=== PATIENT | female | born 1995 | race Caucasian/White ===

== ENCOUNTER 2016-09-01 12:00 | Emergency (ER) | payer OTHER ==
[~2016-09-01] VITALS: Ht 154.9 cm; Wt 51.5 kg
[~2016-09-01 12:00] MED LIST: IBUP-103 PO; NUTRTAB PO
[2016-09-01 12:06] VITALS: TEMP 36.6; Ht 154.9 cm; Wt 51.5 kg
[2016-09-01] MEDS ORDERED: IBUPROFEN 200 MG TAB PO STA (12:27)
--- NOTE | 2016-09-01 13:12 | DIAGNOSTIC IMAGING REPORT ---
RIGHT RIBS UNILATERAL WITH PA CHEST CLINICAL HISTORY: right anterior rib pain/injury Right COMPARISON STUDY: None FINDINGS: Negative right ribs. No evidence for fracture. Lungs are clear. No evidence for pneumothorax. IMPRESSION: 1. Negative right ribs. 2. Negative chest. Electronically signed by: Ramon Godinez M.D. 09/01/2016 1:11 PM Dictated Date/Time: 09/01/2016 1:10 PM
--- NOTE | 2016-09-01 13:35 | EMERGENCY ROOM VISIT NOTE ---
ED Visit Note First contact with patient: 12:19 CHIEF COMPLAINT: Right rib injury HISTORY OF PRESENT ILLNESS: This 21-year-old female presents to the ER with chief complaint of right rib injury. The patient states that while she was in [place] last week on spring she fell backwards and a chair landed on top of her. She states it struck the anterior lower ribs. Since that time she has pain in the ribs especially when she moves or coughs. The patient has had head congestion and cough since last week. She does admit to some slight body aches but denies any fever, sore throat or ear pain. REVIEW OF SYSTEMS: 6 system review was performed and was negative unless stated otherwise in history of present illness. PMH: The patient is healthy; there is no significant medical or surgical history. SOCIAL HISTORY: Patient is a [employer] student. The patient admits to tobacco use and occasional alcohol use. PHYSICAL EXAM: Vital Signs were reviewed: Temperature 36.6, blood pressure 107/ 70, pulse 80 respirations 18 Reviewed Nurse's notes and agree. Oxygen saturation is 99 % on room air which is normal . GENERAL: 20-year-old male appears in no acute distress. MENTAL STATUS: Alert, oriented, coherent. EARS: Canals clear. TMs good light reflex, no erythema or fluid level noted. NOSE: Nasal mucosa with moderate erythema engorgement. PHARYNX: No erythema, no edema noted. No exudate noted. Airway is adequate. NECK: Supple, non-tender. No lymphadenopathy noted. LUNGS: Clear to auscultation without wheezes rales or rhonchi. CARDIAC: Regular rate and rhythm without murmur. CHEST WALL: No erythema, ecchymosis noted. There is tenderness palpation over the right anterior lower chest wall otherwise chest wall is nontender. SKIN: No rashes noted. EMERGENCY COURSE: The patient was evaluated. The patient was given Motrin 400 mg by mouth for pain. X-ray of the right ribs to include PA chest was ordered and interpreted by the radiologist and myself. DIAGNOSTICS:RIGHT RIBS UNILATERAL WITH PA CHEST CLINICAL HISTORY: right anterior rib pain/injury Right COMPARISON STUDY: None FINDINGS: Negative right ribs. No evidence for fracture. Lungs are clear. No evidence for pneumothorax. IMPRESSION: 1. Negative right ribs. 2. Negative chest. Electronically signed by: Ramon Godinez M.D. 09/01/2016 1:11 PM Dictated Date/Time: 09/01/2016 1:10 PM The status of this report is Signed. Draft = Not yet reviewed or approved by Radiologist. The patient was informed of the findings and discharged home in stable condition. DIAGNOSIS: Right rib contusion URI TREATMENT and DISCHARGE INSTRUCTIONS: Ibuprofen 400 mg every 6 hours with food for pain. [id number] symptomatic treatment for your cold symptoms. Push fluids, rest. If symptoms persist or worsen, follow-up with [facility]. Current/Historical Medications No Active Prescriptions or Reported Meds Allergies Coded Allergies: No Known Allergies (Unverified , 09/01/16) Vital Signs Date Time Temp Pulse Resp B/P Pulse Ox O2 Delivery O2 Flow Rate FiO2 09/01/16 12:06 36.6 80 18 107/70 99 Room Air Medications Administered Medications (Trade) Dose Ordered Sig/Naomi Route Start Time Stop Time Status Last Admin Dose Admin Ibuprofen (Advil Tab) 400 mg NOW STAT PO 09/01/16 12:27 09/01/16 12:28 DC 09/01/16 12:33 400 MG Departure Information Prescriptions No Active Prescriptions or Reported Meds Referrals No Doctor, Assigned (PCP) Patient Instructions My [facility] [employer]
[2016-09-01 13:43] VITALS: BP 101/67; PULSE 78; O2SAT 99
== END 2016-09-01 13:47 | disposition home or self-care (01) ==
LOC: C.EDB 12:03 → C.EDD 13:47
DX: S20.211A Contusion of right front wall of thorax, initial encounter (principal); J06.9 Acute upper respiratory infection, unspecified; W01.190A Fall on same level from slipping, tripping and stumbling with subsequent striking against furniture, initial encounter; F17.200 Nicotine dependence, unspecified, uncomplicated

== ENCOUNTER 2017-08-09 17:18 | Emergency (ER) | payer OTHER ==
[~2017-08-09] VITALS: Ht 152.4 cm; Wt 48.0 kg
[2017-08-09 17:33] VITALS: TEMP 36.6; Ht 152.4 cm; Wt 48.0 kg
[2017-08-09] MEDS ORDERED: IBUP-103 PO (19:50)
[2017-08-09] MEDS ORDERED: DEXAMETHASONE **PF** INJ 10 MG/ML VIAL IM STA (20:00)
[2017-08-09] MEDS ORDERED: CYCLOBENZAPRINE HCL 5 MG TAB PO STA (20:00)
--- NOTE | 2017-08-09 21:05 | DIAGNOSTIC IMAGING REPORT ---
L-SPINE MIN 4 VIEWS ROUTINE, SACRUM COCCYX MIN 2 VIEWS CLINICAL HISTORY: low back pain COMPARISON STUDY: Abdomen and pelvis CT 12/23/2015. FINDINGS: Stable 3 mm stone within the lower pole of the right kidney. No fracture or subluxation within the lumbar spine. Disc spaces are relatively preserved. No fractures identified within the sacrum or coccyx. Bilateral sacroiliac joints are within normal limits. Presacral soft tissues are maintained. Small calcification within the right deep pelvis consistent with a phlebolith. IMPRESSION: 1. No fracture or subluxation within the lumbar spine. 2. The sacrum and coccyx are within normal limits. 3. Stable right-sided nephrolithiasis. Electronically signed by: Juan Diego Flores M.D. 08/09/2017 9:04 PM Dictated Date/Time: 08/09/2017 9:00 PM
[2017-08-09] MEDS ORDERED: CYCL5TAB PO (21:36)
[2017-08-09] MEDS ORDERED: METH4PAK PO (21:36)
--- NOTE | 2017-08-09 21:38 | EMERGENCY ROOM VISIT NOTE ---
ED Visit Note First contact with patient: 19:47 CHIEF COMPLAINT: Low back pain HISTORY OF PRESENT ILLNESS: This 22-year-old female patient presents to the emergency department, ambulatory, complaining of pain in the low back which began a few days ago, but worsened today. The pain was gradual in onset, is now constant and worse with movement. The patient notes the pain as sharp and shooting and a 10/10 at its worst. The patient has taken 400 mg ibuprofen without relief of the pain. The patient denies any loss of control of their bowel or bladder functions. There has been no leg numbness or weakness, and no change in sensation. No nausea or vomiting or abdominal pain. No chest pain or shortness of breath. The patient has not had prior back injuries, but states she does occasionally get similar pain to this, usually with certain exercises. No dysuria or increased urinary frequency. The patient's symptoms are better now than they were earlier today. REVIEW OF SYSTEMS: A 10 system review of systems was performed with positives and pertinent negatives listed in the history of present illness. All other systems were reviewed and are negative. ALLERGIES: None MEDICATIONS: None PMH: None SOCIAL HISTORY: The patient is a [employer] student. She lives locally with her roommates. She denies drug use. She admits to occasional alcohol and daily tobacco use. PHYSICAL EXAM: VITALS: Vitals are noted on the nurse's note and reviewed by myself. Vital signs stable. GENERAL: This is a 22-year-old female, in no acute distress, nondiaphoretic, well-developed well-nourished. SKIN: The skin was without rashes, erythema, edema, or bruising. Capillary refill less than 2 seconds. NECK: Supple without nuchal rigidity. No cervical spine tenderness. No paraspinous muscle tenderness. HEART: Regular rate and rhythm without murmurs gallops or rubs. LUNGS: Clear to auscultation bilaterally without wheezes, rales or rhonchi. ABDOMEN: Positive bowel sounds x 4. Normal tympanic percussion. Soft, nontender, without masses or organomegaly. Denny sign negative. MUSCULOSKELETAL: No muscle atrophy, erythema, or edema noted of the back. There is no tenderness over the lumbar spinous processes. There is mild tenderness over the paraspinous muscles bilaterally. There is no tenderness over the thoracic spine or paraspinous muscles. There are muscle spasms present. The patient is slow to move around with maximum tenderness with sitting from a lying position. Positive straight leg raise test on the right. There is tenderness at the SI joint. NEURO: Patient was alert and oriented to person place and time. Normal sensation to light and sharp touch. Deep tendon reflexes 2+ in the lower extremities. Dorsalis pedis pulse 2+ bilaterally. Strength 5/5 and equal in the bilateral lower extremities. RADIOLOGY: L-SPINE MIN 4 VIEWS ROUTINE, SACRUM COCCYX MIN 2 VIEWS CLINICAL HISTORY: low back pain COMPARISON STUDY: Abdomen and pelvis CT 12/23/2015. FINDINGS: Stable 3 mm stone within the lower pole of the right kidney. No fracture or subluxation within the lumbar spine. Disc spaces are relatively preserved. No fractures identified within the sacrum or coccyx. Bilateral sacroiliac joints are within normal limits. Presacral soft tissues are maintained. Small calcification within the right deep pelvis consistent with a phlebolith. IMPRESSION: 1. No fracture or subluxation within the lumbar spine. 2. The sacrum and coccyx are within normal limits. 3. Stable right-sided nephrolithiasis. Electronically signed by: Juan Diego Flores M.D. 08/09/2017 9:04 PM Dictated Date/Time: 08/09/2017 9:00 PM EMERGENCY DEPARTMENT COURSE: The patient was seen and evaluated as above. She has symptoms consistent with lumbar strain with sciatica, and certainly does not exhibit any signs of infection, abscess, or cauda equina syndrome. She was given 8 mg Decadron and 5 mg Flexeril with moderate improvement in her symptoms. X-rays were ordered and reviewed by myself and radiologist as above. The patient was reassessed and notes significant improvement. She is able to ambulate more easily now than previously. The patient will be discharged home on steroids and muscle relaxers to help with her symptoms, and is agreeable to this assessment and plan. She was encouraged to follow-up outpatient with [facility] for possible physical therapy referral. The patient' s questions were answered to her satisfaction. Discharge instructions reviewed , and the patient was discharged home in good condition. I attest that I have personally reviewed the patient's current medication list. Patient was found to have normal blood pressure on screening and does not require follow-up. Etiologies such as lumbago, sciatica, cauda equina, epidural abscess, osteomyelitis, fracture, aortic disease, metastatic disease, infection, renal colic, gastrointestinal, as well as others were entertained. DIAGNOSIS: Lumbar strain, sciatica Current/Historical Medications Scheduled Methylprednisolone (Medrol Dosepak), 0 PO DAILY Scheduled PRN Cyclobenzaprine Hcl (Flexeril), 5 MG PO TID PRN for Muscle Spasms Ibuprofen Tab (Advil), 400 MG PO Q6 PRN for Pain Allergies Coded Allergies: No Known Allergies (Unverified , 09/01/16) Vital Signs Date Time Temp Pulse Resp B/P (MAP) Pulse Ox O2 Delivery O2 Flow Rate FiO2 08/09/17 21:48 82 18 110/64 100 08/09/17 19:52 84 18 107/68 100 Room Air 08/09/17 17:33 36.6 82 18 97/61 96 Room Air Medications Administered Medications (Trade) Dose Ordered Sig/Naomi Route Start Time Stop Time Status Last Admin Dose Admin Dexamethasone Sodium Phosphate (Dexamethasone Inj Pf) 8 mg NOW STAT IM 08/09/17 20:00 08/09/17 20:02 DC 08/09/17 20:08 8 MG Cyclobenzaprine HCl (Flexeril Tab) 5 mg NOW STAT PO 08/09/17 20:00 08/09/17 20:02 DC 08/09/17 20:08 5 MG Departure Information Impression Primary Impression: Strain of lumbar region Additional Impression: Sciatica Dispostion Home / Self-Care Condition GOOD Prescriptions Cyclobenzaprine Hcl (FLEXERIL) 5 Mg Tab 5 MG PO TID Y for Muscle Spasms, #15 TAB PRN Prov: Valencia Kidd PA-C 08/09/17 Methylprednisolone (MEDROL DOSEPAK) 4 Mg Arian 0 PO DAILY, #1 PKT Prov: Valencia Kidd PA-C 08/09/17 Referrals [facility] (PCP) Patient Instructions ED Low Back Pain Injury, Exercises Back Lower Back Stretch, My [facility] Additional Instructions You have been treated in the Emergency Department for Back Pain. You have received pain medicine in the emergency department which impairs your ability to operate a vehicle. You have been prescribed Flexeril (cyclobenzaprine) 1-2 tabs orally, three times per day. Do NOT exceed 30 mg (6 tabs) per day. Take your first dose at bedtime as it can make you drowsy. Always take all medications as prescribed. You have been prescribed a Medrol Dosepak. This is a steroid which will help decrease your inflammation, redness, and itch. Take the medicine as prescribed. Take the ENTIRE 6 day course of the steroids. Do not take any NSAIDs including ibuprofen, naproxen, Motrin, Aleve, Advil while taking this medication. You may take Tylenol (acetaminophen). For pain control, you can use the following [id number] medicines (if >12 yo): Ibuprofen(Motrin, Advil) may be used for fever or pain. Use 600mg every six hours as needed. Take with food. Avoid using more than 2400mg in a 24 hour period. Do not use 2400mg per day for more than three consecutive days without physician direction. Prolonged inappropriate use can lead to stomach upset or ulcers. Do not take this medication while taking steroids. (AND/OR) Acetaminophen(Tylenol) may be used for fever or pain. Use 1000mg every six hours as needed. Avoid using more than 3000mg in a 24 hour period. If this is an acute injury, ice can be applied to the area of pain for the first 3 days to help decrease pain and inflammation. After the first 3 days, a heating pad can be used over the area for continued soothing relief. You should schedule a follow-up appointment in 2-3 days with your Primary Care Provider/[facility] for further evaluation and treatment of your back pain. Return to the Emergency Department if your current symptoms worsen despite treatment course outlined above, or if you develop any of the following symptoms : intractable pain despite aforementioned treatment course, loss of control of your bowel or bladder, numbness or tingling in your groin, or development of a fever. School Instructions Return To School: 2 days Problem Qualifiers Primary Impression: Strain of lumbar region Encounter type: initial encounter Qualified Codes: S39.012A - Strain of muscle, fascia and tendon of lower back, initial encounter Additional Impression: Sciatica Laterality: bilateral Qualified Codes: M54.31 - Sciatica, right side; M54.32 - Sciatica, left side
[2017-08-09 21:48] VITALS: BP 110/64; PULSE 82; O2SAT 100
== END 2017-08-09 21:52 | disposition home or self-care (01) ==
LOC: C.EDB 17:20 → C.EDD 21:52
DX: S39.012A Strain of muscle, fascia and tendon of lower back, initial encounter (principal); M54.32 Sciatica, left side; M54.31 Sciatica, right side; X58.XXXA Exposure to other specified factors, initial encounter; Y92.9 Unspecified place or not applicable; Z72.0 Tobacco use

== ENCOUNTER 2017-10-02 15:53 | Emergency (ER) | payer OTHER ==
[~2017-10-02] VITALS: Ht 152.4 cm; Wt 48.2 kg
[~2017-10-02 15:53] MED LIST changes: -NUTRTAB PO
[2017-10-02 15:58] VITALS: BP 100/60; PULSE 70; TEMP 36.8; O2SAT 97; Ht 152.4 cm; Wt 48.2 kg
[2017-10-02] MEDS ORDERED: TRAMADOL HCL 50 MG TAB PO STA (16:34)
[2017-10-02] MEDS ORDERED: KETOROLAC TROMETHAMINE 60 MG/2 ML VIAL IM STA (16:34)
[2017-10-02] MEDS ORDERED: DEXAMETHASONE **PF** INJ 10 MG/ML VIAL IM ONE (16:45)
[2017-10-02] MEDS ORDERED: TRAM-10 PO (16:54)
[2017-10-02] MEDS ORDERED: METH4PAK PO (16:54)
--- NOTE | 2017-10-02 19:11 | EMERGENCY ROOM VISIT NOTE ---
History First contact with patient: 16:02 Chief Complaint: BACK PAIN Stated Complaint: SCIATICA History of Present Illness The patient is a 22 year old female who presents to the Emergency Room with complaints of worsening back pain radiating down the right posterior thigh and leg region. The patient reports that the pain alternates between her buttock and leg region. The patient reports that she was here in July with similar symptoms. She was provided some shots and prescription for a muscle relaxer and steroid. The patient reports that she then followed up with a physical therapist at [facility]. The patient reports that she only had 3 sessions. She also saw a chiropractor for a few sessions as well. When asked if the patient actually saw a provider at [facility], she does not think that she did. The patient reports that she is going back home to [facility] in 2 weeks when the semester is over. With her current symptoms, the patient denies any bladder/bowel incontinence, saddle anesthesias or lower extremity weakness. She is finding it difficult to study for finals as she has to lay mostly on her stomach to relieve the pain. She rates her discomfort a 10 out of 10. Review of Systems 10 system review was performed and was negative except for pertinent positives and negatives as indicated in history of present illness Past Medical/Surgical History Medical Problems: (1) Immunizations up to date Family History Patient reports no known family medical history. Social History Smoking Status: Current Every Day Smoker Drug Use: none Marital Status: single Occupation Status: [employer] Current/Historical Medications Scheduled Methylprednisolone (Medrol Dosepak), 0 PO DAILY Scheduled PRN Ibuprofen Tab (Advil), 400 MG PO Q6 PRN for Pain Tramadol (Ultram), 1-2 TAB PO Q4H PRN for Pain Physical Exam Vital Signs Date Time Temp Pulse Resp B/P (MAP) Pulse Ox O2 Delivery O2 Flow Rate FiO2 10/02/17 15:58 36.8 70 18 100/60 97 Room Air Physical Exam CONSTITUTIONAL: Healthy and well nourished. Alert and oriented X 3 with positive affect. Patient does not appear in any acute distress. The patient was laying in the supine position during exam. HEENT: Normocephalic, atraumatic. Pupils equal, round and reactive. NECK: Full active range of motion without discomfort. RESPIRATORY: Clear to auscultation bilaterally with no wheezing, crackles, rhonchi or stridor. CARDIOVASCULAR: Regular rate and rhythm with no murmurs, rubs or gallops. GASTROINTESTINAL: Bowel sounds present in all quadrants. Soft and nontender to palpation. MUSCULOSKELETAL: Examination shows generalized tenderness to palpation through the right lower lumbar region and SI joint. Negative logroll. Mildly positive straight leg raise. Ankle plantar and dorsiflexion strength are 5 out of 5 and symmetric bilaterally. Pedal pulses are intact. INTEGUMENTARY: No rash or other significant dermatologic conditions noted. NEUROLOGIC: Lower extremities are sensory intact with deep tendon reflexes 2+ and symmetric bilaterally. Medical Decision & Procedures Medications Administered Medications (Trade) Dose Ordered Sig/Naomi Route Start Time Stop Time Status Last Admin Dose Admin Ketorolac Tromethamine (Toradol Inj) 60 mg NOW STAT IM 10/02/17 16:34 10/02/17 16:36 DC 10/02/17 17:09 60 MG Dexamethasone Sodium Phosphate (Dexamethasone Inj Pf) 10 mg NOW ONCE IM 10/02/17 16:45 10/02/17 16:46 DC 10/02/17 17:09 10 MG Tramadol HCl (Ultram Tab) 50 mg NOW STAT PO 10/02/17 16:34 10/02/17 16:36 DC 10/02/17 17:08 50 MG ED Course Patient history and physical exam were performed. Nurse's notes were reviewed. Vital signs were reviewed and were normal. I also reviewed documentation from the patient's visit on 08/09/17. She did have x-rays performed that were normal. She was provided prescriptions for Flexeril and a Medrol Dosepak, and was referred back to her PCP or [facility] for follow-up. The patient appears to have a worsening radiculitis at this time. I did suggest starting her again on a corticosteroid, and providing a prescription for Ultram. The patient was advised that she could alternate ibuprofen and Tylenol for additional baseline pain relief. The patient was encouraged to either follow-up with [facility] officially, or she was also provided contact information for [facility]. She was provided contact information for Dr. Wallace, spine surgeon, although I doubt that she would have any definitive evaluation and treatment plan established within the next 2 weeks. The patient has essentially met criteria for most insurance companies to authorize an MRI, however I explained to the patient that the emergency department does not do prior authorization for MRI studies. The patient was advised that if she does not have an MRI performed prior to going home, she may discuss this with her PCP back in [facility]. The patient was administered Toradol 60 mg and Decadron 10 mg IM. The patient was happy with plan of care, voiced understanding of all discharge instructions, was appreciative of the education that I provided over an approximate 30 minutes evaluation, and rated her discomfort a 6 out of 10 at the conclusion of my exam. Medical Decision See previous section. Patient history and clinical exam findings are not consistent with cauda equina syndrome. I do not suspect spinal abscess, hematoma or discitis. Her symptoms are consistent with a lumbar radiculitis. [place] Drug Monitoring Program Search Results: patient reviewed within database, no issues identified Medication Reconcilliation Current Medication List: was personally reviewed by me Blood Pressure Screening Patient's blood pressure: Normal blood pressure Impression Primary Impression: Right lumbar radiculitis Departure Information Dispostion Home / Self-Care Condition FAIR Prescriptions Methylprednisolone (MEDROL DOSEPAK) 4 Mg Arian 0 PO DAILY, #1 PKT Prov: Junior Brock PA 10/02/17 Tramadol (Ultram) 50 Mg Tab 1-2 TAB PO Q4H Y for Pain, #30 TAB For Initial Treatment Prov: Junior Brock PA 10/02/17 Referrals Omar Wallace D.O. Wagner,Fabiola NormanP. Forms HOME CARE DOCUMENTATION FORM, IMPORTANT VISIT INFORMATION Patient Instructions Lumbar Radiculopathy, My [facility] Additional Instructions Try to avoid sitting for long periods of time. Avoid heavy lifting or other strenuous activities. Ibuprofen 800 mg and/or Tylenol 1000 mg every 8 hours. You may also alternate these medications for more effective pain relief: Ibuprofen --4 HRS--> Tylenol --4 HRS--> ibuprofen --4 HRS--> Tylenol .... Ultram if needed for worse pain. Take Medrol Dosepak as prescribed, next dose tomorrow evening. Suggest follow-up with [facility] or [facility] (PRESTON Collins) for further reevaluation and management. You may also try to contact the [facility] (Dr. Wallace ) to see if they can evaluate you before you return home. Return to the emergency department for any developing bladder/bowel incontinence , numbness of the inner thigh/pubic region or profound right lower extremity weakness.
== END 2017-10-02 17:15 | disposition home or self-care (01) ==
LOC: C.EDB 15:54 → C.EDD 17:15
DX: F17.200 Nicotine dependence, unspecified, uncomplicated (principal); M54.16 Radiculopathy, lumbar region

== ENCOUNTER 2017-10-08 17:48 | Emergency (ER) | payer OTHER ==
[~2017-10-08] VITALS: Ht 157.5 cm; Wt 47.7 kg
[~2017-10-08 17:48] MED LIST changes: -IBUP-103 PO; +METH4PAK PO; +TRAM-10 PO
[2017-10-08 17:57] VITALS: TEMP 36.5; Ht 157.5 cm; Wt 47.7 kg
--- NOTE | 2017-10-08 20:14 | DIAGNOSTIC IMAGING REPORT ---
LUMBAR SPINE W/O CONTRAST HISTORY: Pain low back pain, radicular sxs right leg, numbness TECHNIQUE: Multiplanar multisequence MRI of the lumbar spine was performed without the use of contrast. COMPARISON: None. FINDINGS: For the purpose of the report the L5-S1 disc space will be located on axial image 2431. Normal signal characteristics of the vertebral bodies. Moderate degenerative disc change L5-S1 with mild disc desiccation L4-L5. Posterior disc herniation L5-S1 with a posterior extruded disc. Bulging disc component L4-L5 L1-L2: No significant central canal or neural foraminal narrowing. L2-L3: No significant central canal or neural foraminal narrowing. L3-L4: No significant central canal or neural foraminal narrowing. L4-L5: Central bulging disc creating a mild impact upon the anterior thecal sac. Neuroforamina are patent bilaterally. L5-S1: Right posterior disc herniation with extruded disc fragment extending posterior to the S1 segment. The extruded disc fragment has a maximum cephalocaudal dimension of 1.5 cm with transaxial measurements of 10 x 8 mm. Local impact 1 thecal sac and associated nerve roots is present. There is minimal narrowing of the right neuroforamina. Left neural foramina is patent. Bulk of the impact his upon the thecal sac itself. IMPRESSION: 1. Prominent right posterior disc herniation L5-S1. 2. This is associated with an extruded disc extending posterior to the right central aspect of the S1 segment. Dimensions of the extruded disc fragment are 1.5 cm x 10 x 8 mm in cross-section 3. Localized mass effect as described with considerable deformity/displacement of the thecal sac posterior to the S1 segment. 4. Central bulging disc L4-L5. The above report was generated using voice recognition software. It may contain grammatical, syntax or spelling errors. Electronically signed by: Ramon Godinez M.D. 10/08/2017 8:13 PM Dictated Date/Time: 10/08/2017 8:06 PM
--- NOTE | 2017-10-08 20:31 | EMERGENCY ROOM VISIT NOTE ---
History First contact with patient: 18:04 Chief Complaint: OTHER COMPLAINT Stated Complaint: SIACTICA History of Present Illness The patient is a 22 year old female who presents to the Emergency Room with complaints of persistent low back pain. The patient reports that she has had pain in her low back for the past 2 months. She states the pain radiates into her right buttock and right thigh. She has relief laying down on her side and states the pain is worse when she is up walking around or sitting. She rates her current discomfort a 10/10. She states the pain as a dull pain and she has associated numbness at times in her right leg and buttocks. This numbness is intermittent. The pain sometimes radiates all the way down the leg into the right foot. She states that she has tingling and feelings of pins and needles at times. She has had courses of steroids and injections for the pain. She has seen [facility] and did physical therapy but states that she did not like physical therapy, because they did not perform any tests and did not put her on a set schedule. She has been to the chiropractor twice and has had massages without relief of her pain. She was seen by orthopedic spine and they are working to have an MRI authorized. The patient states that she finished her steroid pack today and does not want to wait any longer for an MRI. She denies any bowel/bladder incontinence, urinary symptoms, fevers or weakness. Review of Systems A complete 10 point review of systems was reviewed with the patient with pertinent positives and negatives as per history of present illness. All else were negative. Past Medical/Surgical History Medical Problems: (1) Immunizations up to date Family History Patient reports no known family medical history. Social History Smoking Status: Current Some Day Smoker Drug Use: none Marital Status: single Occupation Status: [employer] student Current/Historical Medications Scheduled Methylprednisolone (Medrol Dosepak), 0 PO DAILY Scheduled PRN Acetaminophen (Tylenol), 1,000 MG PO Q6H PRN for Pain Ibuprofen Tab (Advil), 400 MG PO Q6H PRN for Pain Tramadol (Ultram), 1-2 TAB PO Q4H PRN for Pain Physical Exam Vital Signs Date Time Temp Pulse Resp B/P (MAP) Pulse Ox O2 Delivery O2 Flow Rate FiO2 10/08/17 20:56 57 18 95/54 98 10/08/17 17:57 36.5 86 18 102/69 97 Room Air Physical Exam VITALS: Vitals are noted on the nurse's note and reviewed by myself. Vital signs stable. GENERAL: This is a 22-year-old female, in no apparent distress, well-developed well-nourished. SKIN: The skin was without rashes. HEAD: Normocephalic atraumatic. HEART: Regular rate and rhythm without murmurs gallops or rubs. LUNGS: Clear to auscultation bilaterally without wheezes, rales or rhonchi. ABDOMEN: Positive bowel sounds x 4. Soft, nontender to palpation. MUSCULOSKELETAL: No significant tenderness to palpation in the lumbar spine or paraspinous muscles. Full range of motion and strength 5/5 in bilateral lower extremities. NEURO: Patient was alert and oriented to person place and time. Sensation intact over bilateral lower extremities. Patellar reflexes 2+ bilaterally. Medical Decision & Procedures ER Provider Diagnostic Interpretation: LUMBAR SPINE W/O CONTRAST HISTORY: Pain low back pain, radicular sxs right leg, numbness TECHNIQUE: Multiplanar multisequence MRI of the lumbar spine was performed without the use of contrast. COMPARISON: None. FINDINGS: For the purpose of the report the L5-S1 disc space will be located on axial image 2431. Normal signal characteristics of the vertebral bodies. Moderate degenerative disc change L5-S1 with mild disc desiccation L4-L5. Posterior disc herniation L5-S1 with a posterior extruded disc. Bulging disc component L4-L5 L1-L2: No significant central canal or neural foraminal narrowing. L2-L3: No significant central canal or neural foraminal narrowing. L3-L4: No significant central canal or neural foraminal narrowing. L4-L5: Central bulging disc creating a mild impact upon the anterior thecal sac. Neuroforamina are patent bilaterally. L5-S1: Right posterior disc herniation with extruded disc fragment extending posterior to the S1 segment. The extruded disc fragment has a maximum cephalocaudal dimension of 1.5 cm with transaxial measurements of 10 x 8 mm. Local impact 1 thecal sac and associated nerve roots is present. There is minimal narrowing of the right neuroforamina. Left neural foramina is patent. Bulk of the impact his upon the thecal sac itself. IMPRESSION: 1. Prominent right posterior disc herniation L5-S1. 2. This is associated with an extruded disc extending posterior to the right central aspect of the S1 segment. Dimensions of the extruded disc fragment are 1.5 cm x 10 x 8 mm in cross-section 3. Localized mass effect as described with considerable deformity/displacement of the thecal sac posterior to the S1 segment. 4. Central bulging disc L4-L5. Electronically signed by: Ramon Godinez M.D. Laboratory Results Test 10/08/17 18:25 Urine Color YELLOW Urine Appearance CLOUDY (CLEAR) Urine pH 7.0 (4.5-7.5) Urine Specific [place] 1.017 (1.000-1.030) Urine Protein NEG (NEG) Urine Glucose (UA) NEG (NEG) Urine Ketones NEG (NEG) Urine Occult Blood NEG (NEG) Urine Nitrite NEG (NEG) Urine Bilirubin NEG (NEG) Urine Urobilinogen NEG (NEG) Urine Leukocyte Esterase NEG (NEG) Urine WBC (Auto) 1-5 /hpf (0-5) Urine RBC (Auto) 0-4 /hpf (0-4) Urine Hyaline Casts (Auto) 1-5 /lpf (0-5) Urine Epithelial Cells (Auto) 20-30 /lpf (0-5) Urine Bacteria (Auto) NEG (NEG) Urine Test NEG (NEG) ED Course The patient was evaluated as above. Patient declined any pain medication. MRI was performed and read by radiology as above. I spoke with Dr. Wallace regarding the patient. He recommended follow up in the office within 48 hours. Patient was reevaluated and treatment plan was discussed. The patient was agreeable to the treatment plan. Discharge instructions were reviewed with the patient. The patient verbalized understanding of my assessment and treatment plan and was discharged home in good condition. Medical Decision Differential diagnosis includes cauda equina syndrome, cord compression, disc herniation, muscle spasm, lumbar strain, epidural abscess, malignancy, transverse myelitis, urinary tract infection, colitis, diverticulitis, kidney stone, among others. The patient is a 22-year-old female who presents today complaining of persistent low back pain. Patient has had multiple visits here and additionally has seen orthopedic spine and [facility] services for this issue. She has been on multiple rounds of steroids and has been taking tramadol for the pain. Patient complains of worsening numbness in her right groin which has been intermittent. Sensation is intact on exam today, however given worsening radicular symptoms MRI was ordered. This did show a large disc herniation as described above. Discussed the case with Dr. Wallace of orthopedic spine, who recommended follow-up in the office within 48 hours. The patient declined any further analgesics, and states that the tramadol works well for her. She was advised to call the office first thing in the morning. She will return for any worsening or new/concerning symptoms. She verbalized understanding of my assessment and treatment plan and was discharged home in good condition. [place] Drug Monitoring Program Search Results: patient reviewed within database, no issues identified Medication Reconcilliation Current Medication List: was personally reviewed by me Blood Pressure Screening Patient's blood pressure: Normal blood pressure Impression Primary Impression: Lumbar disc herniation with radiculopathy Departure Information Dispostion Home / Self-Care Condition GOOD Referrals No Doctor, Assigned (PCP) Jacky Mora M.D. Patient Instructions My [facility] Additional Instructions You have been treated in the Emergency Department for Back Pain. Continue your previous pain medications as prescribed. Contact Dr. Mora's office first thing in the morning to schedule follow-up appointment either Monday or Monday. You can tell them that you were in the emergency department and had an MRI, and that we spoke with Dr. Wallace who recommended to follow-up within 48 hours. Return to the Emergency Department if your current symptoms worsen despite treatment course outlined above, or if you develop any of the following symptoms : intractable pain despite aforementioned treatment course, loss of control of your bowel or bladder, numbness or tingling in your groin, or development of a fever.
[2017-10-08 20:56] VITALS: BP 95/54; PULSE 57; O2SAT 98
[2017-10-09] MEDS ORDERED: CITA10TA4 PO (15:49)
[2017-10-09] MEDS ORDERED: ULT50 PO (15:49)
[2017-10-09] MEDS ORDERED: ACET-1256 PO (16:21)
[2017-10-09] MEDS ORDERED: IBUP-103 PO (19:50)
[2017-10-11] MEDS ORDERED: RXC5 PO (11:23)
== END 2017-10-08 20:57 | disposition home or self-care (01) ==
LOC: C.EDB 17:49 → C.EDD 20:57
DX: M51.16 Intervertebral disc disorders with radiculopathy, lumbar region (principal); F17.200 Nicotine dependence, unspecified, uncomplicated

== ENCOUNTER 2017-10-09 14:32 | Inpatient (IN) | payer OTHER ==
[~2017-10-09] VITALS: Ht 152.4 cm; Wt 46.5 kg
[2017-10-09 14:36] VITALS: Ht 152.4 cm; Wt 46.5 kg
[2017-10-09] MEDS ORDERED: KETOROLAC TROMETHAMINE 30 MG/ML VIAL IV STA (14:52)
[2017-10-09] MEDS ORDERED: METHYLPREDNISOLONE 125 MG VIAL IV STA (14:52)
[2017-10-09] MEDS ORDERED: ONDANSETRON INJ 2 MG/ML 2 ML VIAL IV STA (14:52)
[2017-10-09] MEDS ORDERED: SODIUM CHLORIDE 0.9% 500ML 500 ML IV STA (14:52)
[2017-10-09 15:35] LABS: BASO % 0.2 %; BASO ABS # 0.02 K/uL (0-0.2); EOS % 0.8 %; EOS ABS # 0.08 K/uL (0-0.5); HEMATOCRIT 44.7 % (37-47); IG# 0.04 K/uL (0.00-0.02); LYMPH % 28.7 %; LYMPH ABS # 2.96 K/uL (1.2-3.4); MEAN CELL VOLUME 80.7 fL (80-100); MEAN CORPUSCULAR HEMOGLOBIN 27.1 pg (25-34); MEAN CORPUSCULAR HGB CONC 33.6 g/dl (32-36); MEAN PLATELET VOLUME 11.1 fL (7.4-10.4); MONO % 7.4 %; MONO ABS # 0.76 K/uL (0.11-0.59); NEUT % 62.5 %; NEUT ABS # 6.46 K/uL (1.4-6.5); PLATELET COUNT 225 K/uL (130-400); RED CELL DISTRIBUTION WIDTH SD 46.8 fL (36.4-46.3); WHITE BLOOD COUNT 10.32 K/uL (4.8-10.8)
[2017-10-09] MEDS ORDERED: ROCURONIUM BROMIDE 10 MG/ML 5 ML VIAL IV ONE (15:43)
[2017-10-09] MEDS ORDERED: PROPOFOL IV EMULSION 10 MG/ML 20 ML VIAL IV ONE ×2 (15:43→18:17)
[2017-10-09] MEDS ORDERED: GLYCOPYRROLATE INJ 0.2 MG/ML VIAL ONE ×2 (15:43→18:17)
[2017-10-09] MEDS ORDERED: ONDANSETRON INJ 2 MG/ML 2 ML VIAL ONE (15:43)
[2017-10-09] MEDS ORDERED: MIDAZOLAM HCL 1 MG/ML 2ML VIAL ONE (15:43)
[2017-10-09] MEDS ORDERED: FENTANYL CITRATE INJ 50 MCG/1 ML 2 ML VIAL ONE (15:43)
[2017-10-09] MEDS ORDERED: NEOSTIGMINE METHYLSULFATE 1 MG/ML 10ML VIAL ONE (15:43)
[2017-10-09] MEDS ORDERED: LIDOCAINE HCL 2% 2 ML VIAL (20MG/ML) ONE (15:43)
[2017-10-09] MEDS ORDERED: DEXAMETHASONE SOD INJ 4 MG/ML VIAL ONE (15:43)
--- NOTE | 2017-10-09 15:43 | EMERGENCY ROOM VISIT NOTE ---
History Report prepared by Dionicio: Edgar Galindo Under the Supervision of: Dr. Jan Rivero M.D. First contact with patient: 14:44 Chief Complaint: ABDOMINAL PAIN Stated Complaint: NUMBNESS TINGLING IN GROIN AREA, VOMITING History of Present Illness The patient is a 22 year old female who presents to the Emergency Room with complaints of worsening low back pain beginning two months ago. She rates her current pain at a 9/10 in severity. Her pain is worsened with movement. The patient also complains of numbness of her groin and states that she is unable to push out urine. She notes that she vomited three times today after she started taking Tramadol. She has a history of occasional lower back pain, but states that it normally resolves with exercise. The patient was seen in the ED two months ago for similar symptoms. She was noted to have a kidney stone at this time which was thought to be coincidental. She was referred to physical therapy at this time. The patient saw physical therapy three times, but stopped going because she felt "like they didn't have a real plan", and "like they thought it was recreation for me". She has seen a chiropractor multiple times within the past month. She saw orthopedics a few days ago and was told that they would work on scheduling an MRI. The patient was seen in the ED yesterday for worsening of her symptoms, and had an MRI of her lumbar spine. Her MRI showed a large lumbar disc herniation. The patient notes that she called orthopedics today and is scheduled to see them tomorrow. She finished a course of of steroids yesterday. She denies chance of . Source of History: patient Onset: Two months ago Position: back (lower) Symptom Intensity: 9/10 Timing: worsening Modifying Factors (Worsening): movement Associated Symptoms: + vomiting, + urinary symptoms (inability to push out urine), + numbness (groin) Review of Systems See HPI for pertinent positives & negatives. A total of 10 systems reviewed and were otherwise negative. Past Medical & Surgical Medical Problems: (1) Immunizations up to date Family History Patient reports no known family medical history. Social History Smoking Status: Never Smoker Drug Use: none Marital Status: single Occupation Status: [employer] student Current/Historical Medications Scheduled Citalopram Hydrobromide (Citalopram Hydrobromide), 15 MG PO DAILY Scheduled PRN Acetaminophen (Tylenol), 1,000 MG PO Q6H PRN for Pain Ibuprofen Tab (Advil), 400 MG PO Q6H PRN for Pain Tramadol HCl (Tramadol HCl), 50-100 MG PO Q4 PRN for Pain Allergies Coded Allergies: No Known Allergies (Unverified , 09/01/16) Physical Exam Vital Signs Date Time Temp Pulse Resp B/P (MAP) Pulse Ox O2 Delivery O2 Flow Rate FiO2 10/09/17 15:48 68 18 123/68 100 Room Air 10/09/17 14:36 36.3 89 20 112/75 97 Room Air Physical Exam GENERAL: Patient is in no acute distress. HEENT: No acute trauma, normocephalic atraumatic, mucous membranes dry, no nasal congestion, no scleral icterus. NECK: No stridor, no adenopathy, no meningismus, trachea is midline. LUNGS: Clear to auscultation bilaterally, no wheeze, no rhonchi, breath sounds equal. HEART: Without murmurs gallops or rubs, regular rate and rhythm. ABDOMEN: Soft, nontender, bowel sounds positive, no hernias, no peritonitis. EXTREMITIES: No cyanosis or edema, full range of motion of all the joints without pain or difficulty, no signs for acute trauma. NEUROLOGIC: Oriented x 3, no acute motor or sensory deficits, no focal weakness. 3/4 patellar and Achilles reflexes bilaterally. SKIN: No rash, no jaundice, no diaphoresis. Medical Decision & Procedures ER Provider Diagnostic Interpretation: Radiology results as stated below per my review and radiologist interpretation: LUMBAR SPINE W/O CONTRAST FINDINGS: For the purpose of the report the L5-S1 disc space will be located on axial image 2431. Normal signal characteristics of the vertebral bodies. Moderate degenerative disc change L5-S1 with mild disc desiccation L4-L5. Posterior disc herniation L5-S1 with a posterior extruded disc. Bulging disc component L4-L5 L1-L2: No significant central canal or neural foraminal narrowing. L2-L3: No significant central canal or neural foraminal narrowing. L3-L4: No significant central canal or neural foraminal narrowing. L4-L5: Central bulging disc creating a mild impact upon the anterior thecal sac. Neuroforamina are patent bilaterally. L5-S1: Right posterior disc herniation with extruded disc fragment extending posterior to the S1 segment. The extruded disc fragment has a maximum cephalocaudal dimension of 1.5 cm with transaxial measurements of 10 x 8 mm. Local impact 1 thecal sac and associated nerve roots is present. There is minimal narrowing of the right neuroforamina. Left neural foramina is patent. Bulk of the impact his upon the thecal sac itself. IMPRESSION: 1. Prominent right posterior disc herniation L5-S1. 2. This is associated with an extruded disc extending posterior to the right central aspect of the S1 segment. Dimensions of the extruded disc fragment are 1.5 cm x 10 x 8 mm in cross-section 3. Localized mass effect as described with considerable deformity/displacement of the thecal sac posterior to the S1 segment. 4. Central bulging disc L4-L5. The above report was generated using voice recognition software. It may contain grammatical, syntax or spelling errors. Electronically signed by: Ramon Godinez M.D. 10/08/2017 8:13 PM Laboratory Results 10/09/17 15:10 Red Blood Count 5.54, Mean Corpuscular Volume 80.7, Mean Corpuscular Hemoglobin 27.1, Mean Corpuscular Hemoglobin Concent 33.6, Mean Platelet Volume 11.1, Neutrophils (%) (Auto) 62.5, Lymphocytes (%) (Auto) 28.7, Monocytes (%) (Auto) 7.4, Eosinophils (%) (Auto) 0.8, Basophils (%) (Auto) 0.2, Neutrophils # (Auto) 6.46, Lymphocytes # (Auto) 2.96, Monocytes # (Auto) 0.76, Eosinophils # (Auto) 0.08, Basophils # (Auto) 0.02 10/09/17 15:10 Test 10/09/17 13:50 10/09/17 15:10 Urine Color YELLOW Urine Appearance CLEAR (CLEAR) Urine pH 7.5 (4.5-7.5) Urine Specific [place] 1.014 (1.000-1.030) Urine Protein NEG (NEG) Urine Glucose (UA) NEG (NEG) Urine Ketones NEG (NEG) Urine Occult Blood 1+ (NEG) Urine Nitrite NEG (NEG) Urine Bilirubin NEG (NEG) Urine Urobilinogen NEG (NEG) Urine Leukocyte Esterase TRACE (NEG) Urine WBC (Auto) 5-10 /hpf (0-5) Urine RBC (Auto) 10-30 /hpf (0-4) Urine Hyaline Casts (Auto) 5-10 /lpf (0-5) Urine Epithelial Cells (Auto) >30 /lpf (0-5) Urine Bacteria (Auto) NEG (NEG) Urine Renal Epithelial Cells /lpf (0-5) Urine Test NEG (NEG) White Blood Count 10.32 K/uL (4.8-10.8) Red Blood Count 5.54 M/uL (4.2-5.4) Hemoglobin 15.0 g/dL (12.0-16.0) Hematocrit 44.7 % (37-47) Mean Corpuscular Volume 80.7 fL (80-100) Mean Corpuscular Hemoglobin 27.1 pg (25-34) Mean Corpuscular Hemoglobin Concent 33.6 g/dl (32-36) Platelet Count 225 K/uL (130-400) Mean Platelet Volume 11.1 fL (7.4-10.4) Neutrophils (%) (Auto) 62.5 % Lymphocytes (%) (Auto) 28.7 % Monocytes (%) (Auto) 7.4 % Eosinophils (%) (Auto) 0.8 % Basophils (%) (Auto) 0.2 % Neutrophils # (Auto) 6.46 K/uL (1.4-6.5) Lymphocytes # (Auto) 2.96 K/uL (1.2-3.4) Monocytes # (Auto) 0.76 K/uL (0.11-0.59) Eosinophils # (Auto) 0.08 K/uL (0-0.5) Basophils # (Auto) 0.02 K/uL (0-0.2) RDW Standard Deviation 46.8 fL (36.4-46.3) RDW Coefficient of Variation 16.0 % (11.5-14.5) Immature Granulocyte % (Auto) 0.4 % Immature Granulocyte # (Auto) 0.04 K/uL (0.00-0.02) Anion Gap 4.0 mmol/L (3-11) Est Creatinine Clear Calc Drug Dose 74.6 ml/min Estimated GFR () 112.7 Estimated GFR (Non- 97.3 BUN/Creatinine Ratio 23.3 (10-20) Calcium Level 9.0 mg/dl (8.5-10.1) Human Chorionic Gonadotropin, Qual NEG (NEG) Laboratory results reviewed by me. Medications Administered Medications (Trade) Dose Ordered Sig/Naomi Route Start Time Stop Time Status Last Admin Dose Admin Methylprednisolone Sodium Succinate (Solu-Medrol IV) 60 mg NOW STAT IV 10/09/17 14:52 10/09/17 14:56 DC 10/09/17 15:13 60 MG Ondansetron HCl (Zofran Inj) 4 mg NOW STAT IV 10/09/17 14:52 10/09/17 14:56 DC 10/09/17 15:12 4 MG Ketorolac Tromethamine (Toradol Inj) 30 mg NOW STAT IV 10/09/17 14:52 10/09/17 14:56 DC 10/09/17 15:13 30 MG Sodium Chloride 500 ml @ 999 mls/hr Q31M STAT IV 10/09/17 14:52 10/09/17 15:22 DC 10/09/17 15:12 999 MLS/HR ED Course 1445: The patient was evaluated in room B2. A complete history and physical exam was performed. 1452: Ordered Sodium Chloride 500 ml @ 999 mls/hr IV, Toradol Inj 30 mg IV, Zofran Inj 4 mg IV, Solu-Medrol 60 mg IV. 1500: Upon reexamination the patient is resting. I discussed the treatment plan with the patient. She verbalizes agreement and understanding. I spoke with Dr. Wallace of Orthopedics. We discussed the patient's results and findings. The patient will be evaluated by Orthopedics for further management. Medical Decision The patient is a 22 year old female who presents to the ED with complaints of low back pain and groin numbness. Differential diagnoses considered include disc herniation, cauda equina syndrome, spinal stenosis, UTI, dehydration and electrolyte imbalance. There is no leukocytosis or concerning anemia. No significant electrolyte abnormality or kidney failure. Urinalysis shows contamination, no obvious infection. testing is negative. On exam, the patient did have good reflexes in both lower extremities. Imaging (an MRI) of her lumbar spine yesterday shows a large disc herniation with thecal sac compression. Patient received IV Toradol, IV Solu-Medrol and IV Zofran, she received IV saline. I do think a hospital stay is warranted. She is failing outpatient treatment. She has been to see multiple providers and imaging does show a very large disc herniation. I spoke with the spinal surgeon assembler clip on sunglasses, I spoke with case management. The patient is aware of her findings. Medication Reconcilliation Current Medication List: was personally reviewed by me Blood Pressure Screening Patient's blood pressure: Normal blood pressure Blood pressure disposition: Did not require urgent referral Consults Time Called: [id number] Consulting Physician: Dr. Wallace - Orthopedics Returned Call: [phone] Discussed the patient's case. Dr. Wallace will come see the patient in the ED. Impression Primary Impression: Lumbar disc herniation Additional Impressions: Bilateral leg numbness Failure of outpatient treatment Scribe Attestation The scribe's documentation has been prepared under my direction and personally reviewed by me in its entirety. I confirm that the note above accurately reflects all work, treatment, procedures, and medical decision making performed by me. Departure Information Dispostion Being Evaluated By Surgeon Referrals No Doctor, Assigned (PCP) Patient Instructions My [facility] Problem Qualifiers
[2017-10-09] MEDS ORDERED: ATROPINE SULFATE 0.1 MG/ML 5ML SYR IV PRN (15:45)
[2017-10-09] MEDS ORDERED: EpHEDrine SULFATE INJ 50 MG/ML AMP IV PRN (15:45)
[2017-10-09] MEDS ORDERED: MoRPHine SULFATE 10 MG/ML CARP/VIAL IV PRN (15:45)
[2017-10-09] MEDS ORDERED: ONDANSETRON INJ 2 MG/ML 2 ML VIAL IV PRN (15:45)
--- NOTE | 2017-10-09 15:45 | History and Physical ---
History & Physical Date Oct 09, 2017. Chief Complaint Back and leg pain with urinary retention and incontinence History of Present Illness The patient is a 22 year old female with complaints of worsening back pain leg pain and numbness. She has had these symptoms for several weeks. She does not describe any specific trauma fall or event. She describes numbness involving upper thighs and perineal area. She states this is been present for several days. She states she is able to urinate when she sits for several minutes on the toilet. She does not have spontaneous ability to urinate. Denies any loss of bowel control. She denies any gross weakness to touch to her lower extremities. Past Medical/Surgical History Medical Problems: (1) Immunizations up to date Additional History Hepatic Disease: No Endocrine Disorder: No Kidney Disease: No Hypertension: No Heart Disease: No Bleeding Tendencies: No Infectious Diseases: No Other: Depression Allergies Coded Allergies: No Known Allergies (Unverified , 09/01/16) Home Medications Scheduled Methylprednisolone (Medrol Dosepak), 0 PO DAILY Scheduled PRN Acetaminophen (Tylenol), 1,000 MG PO Q6H PRN for Pain Ibuprofen Tab (Advil), 400 MG PO Q6H PRN for Pain Tramadol (Ultram), 1-2 TAB PO Q4H PRN for Pain Physical Examination Skin: warm/dry, no rash Eyes: normal inspection, EOMI, sclerae normal ENT: normal ENT inspection, pharynx normal Head: normocephalic, atraumatic Neck: supple, no adenopathy, trachea midline Respiratory/Chest: lungs clear, normal breath sounds, no respiratory distress Cardiovascular: regular rate, rhythm, no edema, no murmur Abdomen / GI: normal bowel sounds, non tender Back: normal inspection Extremities: normal inspection, normal range of motion Neurologic/Psych: no motor/sensory deficits, alert, normal reflexes, oriented x 3 Addiitonal Comments: Patient is alert and oriented and cooperative. She has tension signs with straight leg raise on the right. She has reasonable plus 5 out of 5 strength to plantar flexion dorsiflexion quadriceps. Sensory is diminished testing on the right lateral aspect of her foot. She has numbness along the perineal and upper thigh area. She has no abnormal skin markings. Plan of Treatment Assessment herniated nuclear pulposus L5-S1 with caudal migration severe canal compromise and cauda equina syndrome. MRI performed yesterday is available for review. I appreciate massive disc herniation L5-S1 with caudal migration. It is nestled along the posterior aspect of the S1 vertebral body. It is creating severe canal compromise. Per the patient's history and exam I am concerned that this needs to be decompressed emergently. I would recommend wide decompression in light of the pattern of disc herniation and a complete discectomy and fusion. Risks benefits pros cons and alternatives were outlined in detail. Risks include but not limited to from anesthesia blindness stroke paralysis nerve damage blood loss current transfusion infection requiring reoperation. At this time we are moving forward with surgery I did have a discussion with her mother is currently in [facility] describing the diagnosis and our concerns. All questions were addressed.
[2017-10-09] MEDS ORDERED: CITA10TA4 PO (15:49)
[2017-10-09] MEDS ORDERED: ULT50 PO (15:49)
[2017-10-09 15:55] LABS: CREATININE 0.85 mg/dl (0.60-1.20); POTASSIUM 3.2 mmol/L (3.5-5.1)
[2017-10-09] MEDS ORDERED: BACITRACIN 50000 UNIT VIAL ONE (16:01)
[2017-10-09] MEDS ORDERED: BUPIVACAINE/EPINEPHRINE 0.5% MPF 1:200,000 30 ML VIAL ONE (16:01)
[2017-10-09] MEDS ORDERED: NURSING VERBAL MED ORDER ONE (16:16)
[2017-10-09] MEDS ORDERED: ACET-1256 PO (16:21)
[2017-10-09] MEDS ORDERED: HYDROmorphone INJ 2 MG/ML SYR/VIAL ONE (17:30)
[2017-10-09] MEDS ORDERED: FLOSEAL HEMOSTATIC MATRIX 10ML TOP ONE (18:26)
--- NOTE | 2017-10-09 18:32 | [facility] Operative Report ---
Operative Report Operative Date Oct 09, 2017. Pre-Operative Diagnosis herniated nuclear pulposus L5-S1 with caudal migration severe canal compromise and cauda equina syndrome. Post-Operative Diagnosis same Procedure(s) Performed 1. Lumbar decompression L5-S1. #2 posterior spinal fusion L5-S1. #3 placement posterior instrumentation L5-S1. #4 interbody fusion L5-S1. #5 placed a peek cage 11 x 22 mm at L5-S1. #6 placement of locally harvested morselized autograft in the posterior lateral gutters. #7 placement of ostial amp bone graft in the interbody space and posterior lateral gutters. Surgeon Dr Wallace Beta Tester Surgeon(s) none Estimated Blood Loss 260ml Findings Massive herniated free fragment of disc Specimens a. L5 S1 disc Anesthesia Type General Description of Procedure Patient was met with preoperatively case discussed all questions addressed. As her presentation was consistent with cauda equina syndrome I recommended emergent decompression. Patient understood and agreed to proceed. After informed consent obtained she was taken to the operative suite underwent intubation and placed in a prone position on the Calixto table on top of the See frame. All bony prominences were well-padded eyes inspected to ensure no external pressure placed upon the. This point the lumbar spine was prepped and draped in normal sterile fashion. Sharp dissection with the assistance of Bovie cautery was performed on November exposing the lamina and transverse process of L5 and sacral ala bilaterally. From a caudal cephalad fashion I removed the lamina of L5 as well as some of the superior portion of the S1 lamina. Identified a massive disc herniation with that extended caudally resting along the S1 vertebral body. He was removed in its entirety. I also addressed the disc herniation standing on the left lateral recess. Pedicle screws were placed in L5-S1 levels bilaterally with the assistance of fluoroscopy and a Propacet romaine placed through a transforaminal approach and left complete discectomy was performed endplates created to subcortical bleeding bone and an 11 x 22 mm peek cage filled with ostium bone graft tapped in position. The rods were then compressed locked into final position bilaterally. Ostium bone graft was placed in the posterior lateral gutters. Including local autograft. 15 round DUNG drain inserted. Incision was then closed with 1 Vicryl fascia 2-0 Vicryl subcutaneously and 4-0 Monocryl for fashion closure Steri-Strips sterile dressings placed. Patient will continue PACU stable condition. I attest to the content of the Intraoperative Record and any orders documented therein. Any exceptions are noted below.
[2017-10-09] MEDS ORDERED: SODIUM CHLORIDE 0.9% 1000ML 1,000 ML IV SCH (18:33)
--- NOTE | 2017-10-09 18:40 | DIAGNOSTIC IMAGING REPORT ---
LUMBAR SPINE 2 OR 3 VIEW CLINICAL HISTORY: L5-S1 FUSION TECHNIQUE: Image intensifier COMPARISON STUDY: None FINDINGS: 2 views the image intensifier confirmed the presence of an L5-S1 laminectomy and fusion. Metallic hardware is in good position. There is disc spacer present at L5-S1. IMPRESSION: Anatomic alignment post laminectomy and fusion L5-S1. The above report was generated using voice recognition software. It may contain grammatical, syntax or spelling errors. Electronically signed by: Ramon Godinez M.D. 10/09/2017 6:39 PM Dictated Date/Time: 10/09/2017 6:39 PM
[2017-10-09] MEDS ORDERED: ACETAMINOPHEN 500 MG TAB PO PRN (18:45)
[2017-10-09] MEDS ORDERED: LORAZEPAM 0.5 MG TAB PO PRN (18:45)
[2017-10-09] MEDS ORDERED: FAMOTIDINE 20 MG TAB PO PRN (18:45)
[2017-10-09] MEDS ORDERED: DO NOT ADMINISTER PNEUMOCOCCAL VACCINE PRN (18:45)
[2017-10-09] MEDS ORDERED: SOD PHOSPHATE/SOD BIPHOSPHATE ENEMA 132 ML BTL PR PRN (18:45)
[2017-10-09] MEDS ORDERED: hydrOXYzine HCL 25 MG TAB PO PRN (18:45)
[2017-10-09] MEDS ORDERED: DO NOT ADMINISTER FLU VACCINE PRN (18:45)
[2017-10-09] MEDS ORDERED: HYDROmorphone HCL 0.5MG/ML 50 ML CASSETTE IV PRN (18:45)
[2017-10-09] MEDS ORDERED: ACETAMINOPHEN IV 100 ML IV PRN (18:45)
[2017-10-09] MEDS ORDERED: NALOXONE HCL 0.4 MG/1 ML VIAL/CARP IV PRN ×2 (18:45)
[2017-10-09] MEDS ORDERED: ALUMINUM/MAGNESIUM SUSP 30 ML UDC PO PRN (18:45)
[2017-10-09] MEDS ORDERED: MAGNESIUM HYDROXIDE SUSP 30 ML UDC PO PRN (18:45)
[2017-10-09] MEDS ORDERED: METOCLOPRAMIDE HCL INJ 5 MG/ML 2 ML VIAL IV PRN (18:45)
[2017-10-09] MEDS ORDERED: LORAZEPAM INJ 0.5 MG in SYRINGE 0.75 ML IV PRN (18:45)
[2017-10-09] MEDS ORDERED: BISACODYL 10 MG SUPP PR PRN (18:45)
[2017-10-09] MEDS ORDERED: CEFAZOLIN IV 1,000 MG in DEXTROSE 5% 50ML 50 ML IV SCH (18:45)
[2017-10-09] MEDS ORDERED: PROMETHAZINE HCL INJ 12.5 MG in SODIUM CHLORIDE 0.9% 50ML 50 ML IV PRN (18:45)
[2017-10-09] MEDS ORDERED: HYDROmorphone HCL 0.5MG/ML 50 ML CASSETTE ONE (18:52)
[2017-10-09] MEDS: FENTANYL CITRATE INJ 50 MCG/1 ML 2 ML VIAL IV PRN ×2 (19:02→19:10)
--- NOTE | 2017-10-09 19:35 | Anesthesiology Progress Note ---
Anesthesia Post Op Note Date & Time Oct 09, 2017 at 19:34 Vital Signs Pain Intensity: 4 Vital Signs Past 12 Hours Date Time Temp Pulse Resp B/P (MAP) Pulse Ox O2 Delivery O2 Flow Rate FiO2 10/09/17 19:30 36.7 69 12 103/59 99 Nasal Cannula 3 10/09/17 19:15 63 14 128/65 99 Nasal Cannula 4 10/09/17 19:05 67 18 114/68 100 Oxymask 10 10/09/17 18:55 80 16 107/63 100 Oxymask 10 10/09/17 18:45 36.7 95 16 116/75 100 Oxymask 10 10/09/17 15:48 68 18 123/68 100 Room Air 10/09/17 14:36 36.3 89 20 112/75 97 Room Air Notes Mental Status: alert / awake / arousable, participated in evaluation Pt Amnestic to Procedure: Yes Nausea / Vomiting: adequately controlled Pain: adequately controlled Airway Patency, RR, SpO2: stable & adequate BP & HR: stable & adequate Hydration State: stable & adequate Anesthetic Complications: no major complications apparent
[2017-10-09 19:49] VITALS: BP 98/58; PULSE 72; TEMP 36.7; O2SAT 100
[2017-10-09 19:50] VITALS: O2SAT 100
[2017-10-09] MEDS ORDERED: IBUP-103 PO (19:50)
[2017-10-09 20:10] VITALS: BP 104/67; PULSE 67; TEMP 36.7; O2SAT 100
[2017-10-09 20:40] VITALS: BP 110/73; PULSE 63; TEMP 36.8; O2SAT 100
[2017-10-09] MEDS: LACTATED RINGER'S 1000ML 1,000 ML IV SCH (21:18)
[2017-10-09] MEDS: DOCUSATE SODIUM/SENNA 50/8.6MG TAB PO SCH (21:39)
[2017-10-09 21:44] VITALS: BP 107/64; PULSE 61; TEMP 36.8; O2SAT 99
[2017-10-09 22:43] VITALS: BP 99/62; PULSE 66; TEMP 36.7; O2SAT 94
[2017-10-09] MEDS: ONDANSETRON INJ 2 MG/ML 2 ML VIAL IV PRN (22:58)
[2017-10-10] MEDS: CEFAZOLIN IV 1,000 MG in SYRINGE 0 ML IV SCH ×2 (00:33→08:30)
[2017-10-10] MEDS: LACTATED RINGER'S 1000ML 1,000 ML IV SCH (02:33)
[2017-10-10 02:53] VITALS: BP 93/57; PULSE 63; TEMP 36.3; O2SAT 96
[2017-10-10] MEDS ORDERED: CEFAZOLIN 1000MG IV PUSH 7.5 ML IV SCH (04:45)
[2017-10-10] MEDS ORDERED: OXYCODONE HCL IR 5 MG TAB (IMMEDIATE RELEASE) PO PRN (06:00)
[2017-10-10] MEDS ORDERED: HYDROmorphone INJ 0.5 MG/0.5 ML SYR IV PRN (06:01)
[2017-10-10] MEDS: DC PCA SCH ×2 (06:10→23:30)
[2017-10-10 06:21] LABS: HEMATOCRIT 34.9 % (37-47); HEMOGLOBIN 11.5 g/dL (12.0-16.0); IG# 0.05 K/uL (0.00-0.02); LYMPH % 7.3 %; LYMPH ABS # 0.93 K/uL (1.2-3.4); MEAN CELL VOLUME 80.2 fL (80-100); MEAN CORPUSCULAR HEMOGLOBIN 26.4 pg (25-34); MEAN PLATELET VOLUME 10.1 fL (7.4-10.4); MONO % 5.3 %; MONO ABS # 0.68 K/uL (0.11-0.59); PLATELET COUNT 181 K/uL (130-400); RED CELL DISTRIBUTION WIDTH CV 15.8 % (11.5-14.5); RED CELL DISTRIBUTION WIDTH SD 46.3 fL (36.4-46.3); WHITE BLOOD COUNT 12.76 K/uL (4.8-10.8)
[2017-10-10] MEDS ORDERED: NURSING DECISION MEDICATION ORDER SCH (06:45)
[2017-10-10 06:54] LABS: BLOOD UREA NITROGEN 13 mg/dl (7-18); CALCIUM 8.7 mg/dl (8.5-10.1); CARBON DIOXIDE 30 mmol/L (21-32); CREATININE 0.55 mg/dl (0.60-1.20); GLUCOSE 110 mg/dl (70-99); POTASSIUM 4.3 mmol/L (3.5-5.1); SODIUM 137 mmol/L (136-145)
[2017-10-10 07:28] VITALS: BP 124/81; PULSE 78; TEMP 37; O2SAT 99
[2017-10-10] MEDS ORDERED: NURSING VERBAL MED ORDER ONE (08:15)
--- NOTE | 2017-10-10 08:18 | Anesthesiology Progress Note ---
Anesthesia Post Op Note Date & Time Oct 10, 2017 at 08:18 Vital Signs Pain Intensity: 8.0 Vital Signs Past 12 Hours Date Time Temp Pulse Resp B/P (MAP) Pulse Ox O2 Delivery O2 Flow Rate FiO2 10/10/17 07:28 37.0 78 16 124/81 (95) 99 Room Air 10/10/17 07:20 Room Air 10/10/17 02:53 36.3 63 14 93/57 (69) 96 Room Air 10/10/17 00:30 Room Air 10/09/17 22:43 36.7 66 16 99/62 (74) 94 Room Air 10/09/17 21:44 36.8 61 16 107/64 (78) 99 Room Air 10/09/17 20:40 36.8 63 16 110/73 (85) 100 Nasal Cannula 2.0 Notes Mental Status: alert / awake / arousable, participated in evaluation Pt Amnestic to Procedure: Yes Nausea / Vomiting: adequately controlled Pain: adequately controlled Airway Patency, RR, SpO2: stable & adequate BP & HR: stable & adequate Hydration State: stable & adequate Anesthetic Complications: no major complications apparent
[2017-10-10] MEDS: CITALOPRAM 20 MG TAB PO SCH (08:30)
[2017-10-10] MEDS: ONDANSETRON INJ 2 MG/ML 2 ML VIAL IV PRN (08:38)
[2017-10-10] MEDS: KETOROLAC TROMETHAMINE 15 MG/ML VIAL IV. PRN ×2 (12:25→18:27)
[2017-10-10 13:16] VITALS: BP 117/72; PULSE 77; TEMP 37.3; O2SAT 94
--- NOTE | 2017-10-10 15:10 | Progress Note ---
Progress Note Date of Service Oct 10, 2017. Progress Note Patient's back pain is controlled. She feels her perineal numbness is somewhat improved. Vital signs are stable. On exam she has reasonable strength testing. Assessment status post lumbar decompression fusion per plan at this time and will initiate physical therapy today discontinue her Blanc and assess her progress over the next few days.
[2017-10-10 15:11] VITALS: BP 112/67; PULSE 72; TEMP 36.9; O2SAT 99
[2017-10-10 16:10] VITALS: O2SAT 99
[2017-10-10] MEDS: DOCUSATE SODIUM/SENNA 50/8.6MG TAB PO SCH (20:37)
[2017-10-10] MEDS: TRAMADOL HCL 50 MG TAB PO PRN (22:54)
[2017-10-10 23:04] VITALS: BP 112/70; PULSE 67; TEMP 36.8; O2SAT 99
[2017-10-11] MEDS: ONDANSETRON INJ 2 MG/ML 2 ML VIAL IV PRN ×2 (00:31→14:25)
[2017-10-11] MEDS: KETOROLAC TROMETHAMINE 15 MG/ML VIAL IV. PRN ×4 (00:31→21:05)
[2017-10-11] MEDS: POLYETHYLENE (MIRALAX) 17 GM PACK PO SCH ×4 (05:33→23:18)
[2017-10-11] MEDS: CITALOPRAM 20 MG TAB PO SCH (07:30)
[2017-10-11 08:00] VITALS: BP 106/68; PULSE 69; TEMP 36.9; O2SAT 97
[2017-10-11] MEDS ORDERED: RXC5 PO (11:23)
--- NOTE | 2017-10-11 11:23 | Discharge Instructions ---
Discharge Instructions Date of Service Oct 11, 2017. Admission Reason for Admission: Cauda Equina Syndrome Discharge Discharge Diagnosis / Problem: lumbar stenosis Discharge Goals Goal(s): Improve function Activity Recommendations Activity Limitations: per Instructions/Follow-up section . Instructions / Follow-Up Instructions / Follow-Up ACTIVITY RECOMMENDATIONS: SELF CARE INSTRUCTIONS AFTER THORACIC/LUMBAR FUSIONS 1. You may walk to your tolerance. It is good exercise for your legs and back. Expect some back and intermittent leg aches and pains. 2. You may perform "counter-top" level activities (make a sandwich, angeline with a project, etc.). 3. No bending or lifting of more than 10 pounds or back twisting of any nature (roll like a log when turning in bed). 4. You may ride in a car for 20-30 minutes at a time. No driving until after your first visit with your doctor. 5. Frequent changes of position and restricting sitting to 30 minutes at a time will help limit the amount of back spasms and stiffness you may experience. 6. You may discontinue the use of ambulatory aids (cane, crutches, etc.) once your strength and confidence allow. 7. You may maintenance data analyst the shower and let water strike your incision when you arrive home at least once daily. Do not take a tub bath, sit in a hot tub or go into a swimming pool until after your first recheck in the office. SPECIAL CARE INSTRUCTIONS: VERY IMPORTANT TO READ AND REVIEW A. Your surgical incision has been closed with a cosmetic suture under the skin that will dissolve in about 6 weeks. In 14 days, you can use a pair of clean scissors and cut the suture that is left outside of the skin at the ends of your incision. 1. The small skin tapes can be removed 7 days after surgery if they have not fallen off by that point. 2. You may keep the wound open to air as much as possible to promote healing after post-op day number 5 unless told otherwise by your doctor. 3. If you think the wound looks like it is becoming infected (redness or worsening drainage) and/or you are experiencing fever, chill or worsening back pain and muscle spasms, contact the office so that we may evaluate you as soon as possible. B. Complications are uncommon, but please contact us if you have any signs or symptoms of: 1. wound infection (fever higher than 102.5 degrees F, redness, separation of wound, drainage, or increasing pain from the incision) 2. blood clots in legs (pain, swelling, redness and warmth in legs) 3. urinary tract infection (fever higher than 102.5 degrees F, burning upon urination or increased frequency of urination) 4. nerve problems (inability to walk on your toes or heels, numbness, loss of bowel or bladder control) 5. any other symptoms that concern you C. Please call the office at if you have any concerns or questions about your operation or recovery. D. No smoking! Smoking drastically decreases the chance of a solid fusion. E. Do not take any anti-inflammatory medications (Indocin, Advil, Motrin, Aspirin, Naprosyn, etc.) as these may inhibit the chance of a solid fusion. Tylenol is okay to take for pain. MANAGING PAIN AFTER SPINAL SURGERY 1. Narcotic medication is intended for short-term use and will be provided for surgical pain. Surgical pain usually lasts for a period of 4-6 weeks. Narcotic medication includes Percocet, Vicodin, Darvocet, Tylenol #3 or Lortab. 2. Longer-term pain is more appropriately treated with non-narcotic medication such as Tylenol ES. 3. Muscle spasm is not appropriately treated with narcotics. Muscle relaxers such as Soma, Flexeril or Skelaxin can be used along with Tylenol ES. 4. Remember that we all live with some "aches and pains". This is not unusual or uncommon after an injury or as we get older. a. Back pain is expected and may include muscle spasms for 4 to 6 weeks after surgery. The pain should gradually improve. If the pain worsens for no apparent reason, please contact the office. b. Intermittent leg pain may also be experienced and should not be concerned about unless it worsens for no apparent reason. If so, please contact the office. 5. We will provide appropriate medication within the normal guidelines of their prescribed use. We will also be very cautious and aware of potential abuse and extended duration of patients' medication needs. a. Pain medications are for your comfort and to assist with sleep and rest so that the tissue can heal. They are not provided in order to return to normal activity and should not be used through the day. To do so or worsening pain at night can result from ongoing tissue damage and development of tolerance to the prescribed medicine. 6. Please allow 2-3 days to process refills. Prescriptions will not be mailed but must be picked up at the office. FOLLOW UP VISIT: Keep your scheduled follow-up appointment. Any questions, please call the office at . Current Hospital Diet Patient's current hospital diet: Regular Diet Discharge Diet Recommended Diet: Regular Diet Procedures Procedures Performed: 1. Lumbar decompression L5-S1. #2 posterior spinal fusion L5-S1. #3 placement posterior instrumentation L5-S1. #4 interbody fusion L5-S1. #5 placed a peek cage 11 x 22 mm at L5-S1. #6 placement of locally harvested morselized autograft in the posterior lateral gutters. #7 placement of ostial amp bone graft in the interbody space and posterior lateral gutters. Pending Studies Studies pending at discharge: no Medical Emergencies . Who to Call and When: Medical Emergencies: If at any time you feel your situation is an emergency, please call 911 immediately. . Non-Emergent Contact Non-Emergency issues call your: Primary Care Provider . "Provider Documentation" section prepared by Omar Wallace. .
--- NOTE | 2017-10-11 13:22 | Progress Note ---
Progress Note Date of Service Oct 11, 2017. Progress Note Patient's back pain is controlled. She denies any leg pain. Most importantly she feels as though her urination is more controlled in that she is able to empty her bladder. She is tolerating physical therapy relatively well. Vital signs are stable. On exam she is good strength testing appears comfortable. Assessment status post lumbar decompression fusion. Plan at this time will maintain the DUNG drain anticipate removal tomorrow and working towards discharge and home health.
[2017-10-11 15:40] VITALS: BP 123/83; PULSE 80; TEMP 36.7; O2SAT 98
[2017-10-11] MEDS: DOCUSATE SODIUM/SENNA 50/8.6MG TAB PO SCH (21:07)
[2017-10-11 23:26] VITALS: BP 109/71; PULSE 66; TEMP 36.7; O2SAT 98
[2017-10-12] MEDS: POLYETHYLENE (MIRALAX) 17 GM PACK PO SCH ×2 (05:42→12:00)
[2017-10-12] MEDS: KETOROLAC TROMETHAMINE 15 MG/ML VIAL IV. PRN ×3 (05:43→18:29)
[2017-10-12] MEDS: DC PCA SCH (05:43)
[2017-10-12] MEDS: ONDANSETRON INJ 2 MG/ML 2 ML VIAL IV PRN ×3 (05:43→18:29)
[2017-10-12 08:05] VITALS: BP 110/65; PULSE 63; TEMP 36.8; O2SAT 100
[2017-10-12] MEDS: CITALOPRAM 20 MG TAB PO SCH (10:01)
[2017-10-12] MEDS ORDERED: NURSING VERBAL MED ORDER ONE (12:15)
--- NOTE | 2017-10-12 13:46 | Progress Note ---
Progress Note Date of Service Oct 12, 2017. Progress Note Patient's back pain is controlled. She still has left leg numbness. Some perineal numbness persists. She is however having bowel movements and urinary function reasonably well. On exam she is good strength testing appears comfortable. Assessment status post lumbar decompression fusion. Plan at this time we will DC the drain today assess her progress possible discharge home tomorrow.
[2017-10-12 15:29] VITALS: BP 114/74; PULSE 76; TEMP 36.8; O2SAT 100
[2017-10-12] MEDS: DOCUSATE SODIUM/SENNA 50/8.6MG TAB PO SCH (20:59)
[2017-10-12 22:54] VITALS: BP 110/72; PULSE 67; TEMP 36.9; O2SAT 100
[2017-10-13] MEDS: DC PCA SCH (03:54)
[2017-10-13] MEDS: KETOROLAC TROMETHAMINE 15 MG/ML VIAL IV. PRN (03:55)
[2017-10-13 07:00] VITALS: BP 98/62; PULSE 66; TEMP 36.9; O2SAT 96
[2017-10-13] MEDS: TRAMADOL HCL 50 MG TAB PO PRN ×2 (08:48→14:25)
[2017-10-13] MEDS: CITALOPRAM 20 MG TAB PO SCH (08:50)
[2017-10-13] MEDS: ONDANSETRON INJ 2 MG/ML 2 ML VIAL IV PRN (08:51)
--- NOTE | 2017-10-13 14:53 | Discharge Summary ---
Orthopedic Discharge Summary Admission Date/Reason Oct 09, 2017 at 18:36 Cauda Equina Syndrome. Discharge Date/Disposition Oct 13, 2017 Home Diagnosis Principal Diagnosis: Cauda equina syndrome with herniated nucleus pulposus L5-S1 Admission Physical Exam As per Admitting History & Physical. Hospital Course Patient was admitted on Monday underwent urgent decompression and fusion the lumbar spine. Postoperatively symptoms slowly improved. She began experiencing improved urinary control. Still perineal numbness and numbness along the left lower extremity. She progressed nicely throughout the week ambulating independently. DUNG drain decreasing appropriately. Subsequently she was discharged home. Discharge orders and instructions found in chart for further review. Discharge Instructions Please refer to the electronic Patient Visit Report (Discharge Instructions) for additional information.
[2017-10-13 15:17] VITALS: BP 110/73; PULSE 74; TEMP 36.5; O2SAT 100
[2017-10-13 16:55] VITALS: BP 110/73; PULSE 74; TEMP 36.5; O2SAT 100
== END 2017-10-13 17:33 | disposition home or self-care (01) | DRG 454 ==
LOC: C.EDB 14:35 → C.3E 18:36 → ENRESERV 19:03
PROVIDERS: ADMIT Orthopaedic Surgery Orthopaedic Surgery of the Spine; ATTEND Orthopaedic Surgery Orthopaedic Surgery of the Spine
PROC: 0SG3071 Fusion of Lumbosacral Joint with Autologous Tissue Substitute, Posterior Approach, Posterior Column, Open Approach (ICD-10-PCS; principal; 2017-10-09 13:15)
PROC: 0ST40ZZ Resection of Lumbosacral Disc, Open Approach (ICD-10-PCS; principal; 2017-10-09 13:15)
PROC: 0SG30AJ Fusion of Lumbosacral Joint with Interbody Fusion Device, Posterior Approach, Anterior Column, Open Approach (ICD-10-PCS; principal; 2017-10-09 13:15)
DX: M51.26 Other intervertebral disc displacement, lumbar region (principal); G83.4 Cauda equina syndrome; R32 Unspecified urinary incontinence; R33.9 Retention of urine, unspecified